=== PATIENT | female | born 1975 | race Caucasian/White ===

== ENCOUNTER 2018-01-08 20:28 | Emergency (ER) | payer SELFPAY ==
[~2018-01-08] VITALS: Ht 154.9 cm; Wt 71.7 kg
[2018-01-08 20:30] VITALS: Ht 154.9 cm; Wt 71.7 kg
[2018-01-08 21:17] VITALS: BP 159/104
== END 2018-01-08 20:40 | disposition home or self-care (01) ==
LOC: ED 20:28
DX: I10 Essential (primary) hypertension (principal)